=== PATIENT | female | born 1990 | race Caucasian/White ===

== ENCOUNTER 2019-06-15 13:02 | Inpatient (IN) | payer OTHER ==
[~2019-06-15] VITALS: Ht 157.5 cm; Wt 97.3 kg
[~2019-06-15 13:02] MED LIST: ACET325T33 PO; IBUP800T48 PO
[2019-06-15] MEDS ORDERED: LACTATED RINGER'S 1,000 ML IV SCH ×2 (14:07→19:59)
[2019-06-15 14:30] VITALS: Ht 157.5 cm; Wt 97.3 kg
[2019-06-15] MEDS ORDERED: OXYTOCIN 30 UNITS/LR 500 ML IV PRN ×2 (14:30→20:00)
[2019-06-15] MEDS ORDERED: MISOPROSTOL 200 MCG TAB PR PRN ×2 (14:30→20:00)
[2019-06-15] MEDS ORDERED: CARBOPROST 250 MCG INJ IM PRN ×2 (14:30→20:00)
[2019-06-15] MEDS ORDERED: METHYLERGONOVINE 0.2 MG INJ IM PRN ×2 (14:30→20:00)
[2019-06-15] MEDS ORDERED: OXYTOCIN 30 UNITS/LR 500 ML IV SCH (14:30)
[2019-06-15] MEDS ORDERED: CEFAZOLIN 2 GM/50 ML (PMX) 50 ML IVPB SCH (14:30)
--- NOTE | 2019-06-15 14:55 | PREAC ---
Date/Time of Note Date/Time of Note DATE: 06/15/19 TIME: 14:54 Anesthesia Eval and Record Evaluation Time Pre-Procedure Interview DATE: 06/15/19 TIME: 14:54 Age 28 Sex female NPO: 8 hrs Preoperative diagnosis IUP AT 39 WEEKS Planned procedure REPEAT C SECTION Past Medical History Past Medical History: Includes GI: Obesity Surgery & Anesthesia Issues No known issue Meds Anticoagulation: No Beta Kendy within 24 hr: No Reason Beta Kendy not given: Pt. not on B-Kendy Current Medications Lactated Ringer's 1,000 ml @ 125 mls/hr Q8H IV ; Start 06/15/19 at 14:07 Cefazolin Sodium/ Dextrose 50 ml @ 100 mls/hr ONCE IVPB ; Start 06/15/19 at 14:30 Oxytocin/Lactated Ringer's 500 ml @ 125 mls/hr POST IV ; Start 06/15/19 at 14:30 Oxytocin/Lactated Ringer's 500 ml @ 0 mls/hr ONCE PRN IV .VAGINAL BLEEDING; Start 06/15/19 at 14:30 Methylergonovine Maleate (Methergine) 0.2 mg ONCE PRN IM .VAGINAL BLEEDING; Start 06/15/19 at 14:30 Carboprost Tromethamine (Hemabate) 250 mcg ONCE PRN IM .VAGINAL BLEEDING; Start 06/15/19 at 14:30 Misoprostol (Cytotec) 1,000 mcg ONCE PRN VT .VAGINAL BLEEDING; Start 06/15/19 at 14:30 Meds reviewed: Yes Allergies Coded Allergies: No Known Allergies (Verified Allergy, Unknown, 06/15/19) Allergies Reviewed: Yes Labs/Studies Labs Reviewed: Reviewed by anesthesiologist test: Positive Pre-procedure Exam Airway: Adequate mouth opening, Adequate thyromental dist Mallampati: Mallampati II Teeth: Normal Lung: Normal Heart: Normal ASA Physical Status ASA physical status: 2 Emergency: None Planned Anesthetic Neuraxial: Spinal Planned Pain Management Sub-arachniod narcotics Pre-operative Attestations Prior to commencing anesthesia and surgery, the patient was re-evaluated, there was verification of: *The patient's identity *The results of appropriate recent lab work and preoperative vital signs *The above evaluation not changing prior to induction *Anesthetic plan, risk benefits, alternative and complications discussed with patient/family; questions answered; patient/family understands, accepts and wishes to proceed. TREVA DELACRUZ Jun 15, 2019 14:55
[2019-06-15] MEDS ORDERED: DEXAMETHASONE 4 MG/ML 1 ML INJ ONE (15:47)
[2019-06-15] MEDS ORDERED: EPHEDrine 25 MG/5 ML SYG ONE (15:47)
[2019-06-15] MEDS ORDERED: ONDANSETRON 4 MG INJ ONE (15:47)
[2019-06-15] MEDS ORDERED: EPINEPHrine 0.1 MG/ML SYG ONE (15:49)
[2019-06-15] MEDS ORDERED: morphine SULFATE/PF (10 MG/10 ML) INJ ONE (16:32)
[2019-06-15] MEDS ORDERED: OXYTOCIN 30 UNITS/LR 500 ML IV ONE (16:33)
--- NOTE | 2019-06-15 16:54 | HP ---
Date/Time of Note Date/Time of Note DATE: 06/15/19 TIME: 16:50 OB - History Hx of Present Free Text/Dictation 28-year-old female 3 para 2 with previous x1 at 39+ weeks admitted for repeat section and a sterilization procedure Last Menstrual Period: Sep 15, 2018 Estimated Due Date: Jun 22, 2019 : 3 Para: 2 Care: Good Care Ultrasounds: Normal mid trimester US Obstetrical Complications: None Medical Complications: None, Other (Previous ) Past Family/Social History * Past Medical, Surgical, Family and Obstetric Histories reviewed from chart. Blood Type: O+ Rubella: immune RPR/VDRL: Negative GBS Status: Negative HBsAG: Negative OB Admission Exam Physical Exam HEENT: WNL Heart: Rhythm Normal Lungs: Clear, Equal Abdomen: WNL Extremities: Normal Reflexes: Normal Cervical Dilatation: None Effacement: 0% Station: -3 Membranes: Intact Heart Rate: 140's Accelerations: Accelerations Present Decelerations: No Decelerations Varibility: Marked Contractions on Admission: None Last 72 hours Lab Results CBC & BMP 06/15/19 14:30 OB Assessment/Plan Reason for admission: section Other Assessment: Term gestation Previous Desires sterilization Other plan: Repeat and tubal ligation ENRIQUE GORE MD Jun 15, 2019 16:54
[2019-06-15] MEDS ORDERED: KETOROLAC 30 MG INJ IV STA (16:56)
[2019-06-15] MEDS ORDERED: ACETAMINOPHEN 500 MG TAB PO STA (16:56)
--- NOTE | 2019-06-15 16:56 | OPR ---
Operative Report Planned Procedure Procedure date Jun 15, 2019 Procedure(s) Repeat and bilateral tubal ligation Performed by see signature line Filter Tank Operator: MINE SIMS M.D. Anesthesiologist: TREVA DELACRUZ Pre-procedure diagnosis Term gestation Previous Desired sterilization [id number] Anesthesia Type: [id number] spinal Post-Procedure Post-procedure diagnosis Status post repeat and tubal ligation Findings Live Baby in BRIANA position Clear amniotic fluid Normal-appearing right and left fallopian tubes and ovaries Estimated Blood Loss: 500 - 600 mls Specimen(s) Segments of right and left fallopian tubes Grafts/Implant(s) none Complication(s) none Pt Condition post procedure: stable Disposition: PACU Procedure Description Under satisfactory anaesthesia a Pfannenstiel incision was made two fingerbreadth above and parallel to the symphysis of pubis around the previous scar and previous scar was removed Incision was extended laterally to the border of the Recti muscles on either sides. Incision was carried down with sharp and blunt dissection until fascia was reached. Anterior Recti muscle fascia was incised in mid portion and incision extended laterally to the border of skin incision. Fascia was mobilized from muscle superiorly and Recti muscles were from midline using sharp and blunt dissection. Peritoneum was visualized; Avoiding bowel and bladder it was incised . Incision was extended superiorly and inferiorly. Bladder blade was placed. Posterior peritoneum covering the lower segment of the uterus and lower segment of the uterus were incised.Low transverse uterine incision was made on lower segment of the uterus. Incision extended laterally to the border of Round Lig. on either sides and baby was delivered from OT. position . Amniotic fluid appeared clear. Cord blood was obtained and cord had 3 vessels . Placenta was delivered spontaneously and appeared intact and complete. Intrauterine cavity was rubbed with a laparotomy sponge. Uterine incision was closed in 2 layers using running stitches of No1 Monocryl. Hemostasis appeared secure. Ovaries and Fallopian tubes were within normal limits. Bilateral Tubal Ligation was performed by following procedure: R fallopian tube was raised in mid portion; a Germania clamp was placed below the fimbriae extending to proximal portion of the fallopian tube. Another clamp was placed parallel to the first and after incising the fallopian tube the stump was sutured using 0 Vicryl stitch. Hemostasis was secure . Same procedure was done on fallopian tube on the opposite side. Hemostasis appeared to be secure on ligated sites of either fallopian tubes. Announcing needle, lap sponge and instrument count to be correct abdomen was closed in layers as follows: Peritoneum and Recti muscles with running stitches of 2-0 Vicryl. Fascia with running stitch of No 1 PDS. Subcutaneous tissue with running stitches of 2-0 Monocryl and skin was closed using ancelmo. Patient tolerated the procedure well and was transferred to [facility] in good condition. ENRIQUE GORE MD Jun 15, 2019 16:56
[2019-06-15] MEDS ORDERED: AZITHROMYCIN 500MG/NS (PMX) 250 ML IVPB ONE (17:00)
[2019-06-15] MEDS ORDERED: ONDANSETRON 4 MG INJ IV PRN (17:00)
[2019-06-15] MEDS ORDERED: NALOXONE (0.4 MG/ML) INJ IV PRN (17:00)
[2019-06-15] MEDS ORDERED: HYDROmorphONE 0.5 MG/0.5 ML SYG IV PRN ×2 (17:00)
[2019-06-15] MEDS ORDERED: ZOLPIDEM 5 MG TAB PO PRN (17:00)
[2019-06-15] MEDS ORDERED: DIPHENHYDRAMINE 50 MG INJ IV PRN (17:00)
[2019-06-15 19:10] VITALS: BP 111/63; PULSE 83; RESP 19
[2019-06-15] MEDS ORDERED: HYDROCODONE/APAP (5/325) TAB PO PRN (20:00)
[2019-06-15] MEDS ORDERED: OXYCODONE/ACETAMINOPHEN (5/325) TAB PO PRN (20:00)
[2019-06-15] MEDS ORDERED: LANOLIN HPA 1 PKT TOP PRN (20:00)
[2019-06-15] MEDS ORDERED: NA PHOSPHATE/BIPHOS 133 ML ENEMA PR PRN (20:00)
[2019-06-15 20:10] VITALS: BP 106/61; PULSE 96; RESP 18
[2019-06-15] MEDS: CEFAZOLIN 2 GM/50 ML (PMX) 50 ML IVPB SCH (21:13)
[2019-06-15] MEDS: SENNA/DOCUSATE NA (8.6MG/50MG) TAB PO SCH (21:16)
[2019-06-15] MEDS: IBUPROFEN 800 MG TAB PO SCH (22:00)
[2019-06-16] VITALS: BP 112/68; PULSE 78; RESP 17
[2019-06-16] MEDS: CLINDAMYCIN 300 MG CAP PO SCH ×5 (00:45→23:42)
[2019-06-16] MEDS: LACTATED RINGER'S 1,000 ML IV SCH ×3 (02:48→18:45)
[2019-06-16 04:05] VITALS: BP 98/52; PULSE 67; RESP 19
[2019-06-16] MEDS: CEFAZOLIN 2 GM/50 ML (PMX) 50 ML IVPB SCH ×2 (04:16→11:42)
[2019-06-16] MEDS: KETOROLAC 30 MG INJ IV PRN ×2 (04:16→12:36)
[2019-06-16] MEDS: IBUPROFEN 800 MG TAB PO SCH ×3 (06:00→22:11)
[2019-06-16 08:30] VITALS: BP 99/58; PULSE 73; RESP 18
[2019-06-16] MEDS: SENNA/DOCUSATE NA (8.6MG/50MG) TAB PO SCH ×2 (09:00→22:10)
[2019-06-16] MEDS ORDERED: BISACODYL 10 MG SUPP PR ONE (10:00)
--- NOTE | 2019-06-16 10:18 | PAC ---
Date/Time of Note Date/Time of Note DATE: 06/16/19 TIME: 10:18 Post-Anesthesia Notes Post-Anesthesia Note Last documented vital signs Vital Signs Date Temp Pulse Resp B/P (MAP) Pulse Ox O2 O2 Flow FiO2 Time Delivery Rate 06/16/19 97.8 73 18 99/58 (72) 95 Room Air 08:30 Activity: WNL Respiratory function: WNL Cardiovascular function: WNL Mental status: Baseline Pain reasonably controlled: Yes Hydration appropriate: Yes Nausea/Vomiting absent: Yes TERVA DELACRUZ Jun 16, 2019 10:18
--- NOTE | 2019-06-16 10:19 | OPPN ---
Date/Time of Note Date/Time of Note DATE: 06/16/19 TIME: 10:18 Anesthesia Follow up Anesthesia Follow up Last documented vital signs Vital Signs Date Temp Pulse Resp B/P (MAP) Pulse Ox O2 O2 Flow FiO2 Time Delivery Rate 06/16/19 97.8 73 18 99/58 (72) 95 Room Air 08:30 Respiratory function: WNL Cardiovascular function: WNL Comments satisfactory pain management with duramorph TREVA DELACRUZ Jun 16, 2019 10:19
[2019-06-16 12:00] VITALS: BP 101/59; PULSE 75; RESP 18
[2019-06-16 15:39] VITALS: BP 102/58; PULSE 76; RESP 18
[2019-06-16 19:50] VITALS: BP 111/63; PULSE 87; RESP 18
--- NOTE | 2019-06-16 20:06 | PN ---
Date/Time of Note Date/Time of Note DATE: 06/16/19 TIME: 20:05 Assessment/Plan VTE Prophylaxis VTE Prophylaxis Intervention: ambulation Lines/Catheters IV Catheter Type (from Nrsg): Peripheral IV Assessment/Plan Assessment/Plan Status post postop day #1 Continue to ambulate and advance diet Subjective 24 Hr Interval Summary Passing flatus Constitutional: no complaints, improved, ambulates, BM, flatus, urine output Pain Control: well controlled Exam/Review of Systems Vital Signs Vitals Vital Signs Date Temp Pulse Resp B/P (MAP) Pulse Ox O2 O2 Flow FiO2 Time Delivery Rate 06/16/19 98.2 76 18 102/58 96 Room Air 15:39 (73) Intake and Output 06/15/19 06/15/19 06/16/19 1515:00 23:00 07:00 IntakeIntake Total 200 ml 400 ml OutputOutput Total 250 ml 900 ml BalanceBalance -50 ml -500 ml Exam Free Text/Dictation Abdomen is soft with present bowel sounds Dominant does not seem distended Incision is covered Constitutional: alert, oriented, well developed Psych: no complaints, nl mood/affect Head: normocephalic, atraumatic Eyes: nl conjunctiva, EOMI, nl lids, nl sclera ENMT: nl external ears & nose, nl lips & teeth, nl nasal mucosa & septum, mucosa pink and moist Neck: supple, non-tender Respiratory: clear to auscultation, normal air movement Cardiovascular: regular rate and rhythm, nl pulses Gastrointestinal: soft, nl liver, spleen, non-tender Musculoskeletal: nl extremities to inspection, nl gait and stance Extremities: normal pulses Neurological: THREAD INSPECTOR II-XII intact, nl mental status, nl speech, nl strength Skin: nl turgor, rash or lesions Lymph: nl lymph nodes Results Result Diagram: 06/16/19 0658 ENRIQUE GORE MD Jun 16, 2019 20:06
[2019-06-17 03:40] VITALS: BP 103/59; PULSE 85; RESP 18
[2019-06-17] MEDS: IBUPROFEN 800 MG TAB PO SCH ×3 (05:37→21:31)
[2019-06-17] MEDS: CLINDAMYCIN 300 MG CAP PO SCH ×3 (05:37→18:11)
[2019-06-17 07:35] VITALS: BP 108/77; PULSE 80; RESP 18
[2019-06-17] MEDS: SENNA/DOCUSATE NA (8.6MG/50MG) TAB PO SCH ×2 (09:14→21:00)
--- NOTE | 2019-06-17 12:46 | DS ---
Date/Time of Note Date/Time of Note Home today or next day DATE: 06/17/19 TIME: 12:42 Obstetrical Discharge Record Final Diagnosis Final Diagnosis: Term delivered Other Final Diagnosis Status post repeat section and bilateral tubal ligation Vaginal Delivery Obstetrical Delivery: Bilateral Tubal Ligation Section Section: Repeat Condition on Discharge Physical Assessment Last Vitals: See nurse's notes Voiding: Yes Bowel Movement: Yes Breast: Soft, non-tender, Filling Fundus: Firm Abdomen and Incision: Abdomen is soft with firm fundus Bowel sounds are present and abdomen is not distended Incision is healing well without induration and no erythema Calf Tenderness: No Patient Condition: Good ENRIQUE GORE MD Jun 17, 2019 12:46
--- NOTE | 2019-06-17 12:52 | DS ---
Date/Time of Note Date/Time of Note DATE: 06/17/19 TIME: 12:46 Discharge Summary Admission/Discharge Info Admit Date/Time Jun 15, 2019 at 13:02 Discharge Date/Time June 17June 182018 Discharge Diagnosis Status post repeat and tubal ligation Patient Condition: Good Procedures Repeat section and bilateral tubal ligation Hx of Present Illness 28-year-old female underwent scheduled repeat section and tubal ligation at term Hospital Course She had uncomplicated hospitalization course Discharge home on second or third day with good prognosis and condition Follow-up Plan Was told to refer to clinic in few days for staple removal Primary Care Provider Allen Bhat MD Time spent on discharge: > 30 minutes Pending Labs Laboratory Tests Test 06/17/19 06:52 White Blood Count 14.3 10^3/ul (4.8-10.8) Red Blood Count 3.58 10^6/ul (4.20-5.40) Hemoglobin 10.0 g/dl (12.0-16.0) Hematocrit 30.1 % (37.0-47.0) Mean Corpuscular Volume 84.1 fl (82.0-101.0) Mean Corpuscular Hemoglobin 27.9 pg (29.0-33.0) Mean Corpuscular Hemoglobin Concent 33.2 g/dl (32.0-37.0) Red Cell Distribution Width 13.2 % (11.5-14.5) Platelet Count 319 10^3/UL (140-415) Mean Platelet Volume 8.2 fl (7.4-10.4) Immature Granulocytes % 1.000 % (0.001-0.429) Neutrophils % 74.0 % (39.0-77.0) Lymphocytes % 16.2 % (15.0-51.0) Monocytes % 7.2 % (0.0-11.0) Eosinophils % 1.2 % (0.0-7.0) Basophils % 0.4 % (0.0-2.0) Nucleated Red Blood Cells % 0.0 /100WBC (0.0-0.0) Immature Granulocytes # 0.140 10^3/ul (0.0-0.031) Neutrophils # 10.6 10^3/ul (1.6-7.5) Lymphocytes # 2.3 10^3/ul (0.8-2.9) Monocytes # 1.0 10^3/ul (0.3-0.9) Eosinophils # 0.2 10^3/ul (0.0-0.5) Basophils # 0.1 10^3/ul (0.0-0.1) Nucleated Red Blood Cells # 0.0 10^3/ul (0.0-0.0) ENRIQUE GORE MD Jun 17, 2019 12:52
--- NOTE | 2019-06-17 13:11 | PD.PPDC ---
BUSINESS DEVELOPMENT CONSULTANT Discharge Instruction Provider Information Physician Information 28-year-old female underwent repeat section and tubal ligation Diagnosis [id number] Final Diagnosis: Akdzs0m Status post repeat and tubal ligation Condition [id number] Patient Condition: [id number] Good Diet [id number] Diet: Komzj8y Resume Regular Diet Activity/Restrictions [id number] Restrictions: Hefoh0m No Exercising No Lifting Nothing in the Vagina [id number] Return to Work or School: [id number] Aug 23, 2019 Wound/Drain Care Instructions [id number] Wound/Drain Care Instructions: Qmixz1t Keep clean and dry Follow-up Follow-up with Physician: 3, 4, Day/Days (In clinic for staple removal) Return to clinic for [id number] OB Instructions: Avxlm5a Breast Tenderness Depression Comment: Pelvic rest and no hard activity for 2 months [id number] Surgical Instructions: Noivp0r Incisional Drainage Incisional Redness ENRIQUE GORE MD Jun 17, 2019 13:11
[2019-06-17] MEDS ORDERED: ACETAMINOPHEN 325 MG TAB PO PRN (13:30)
[2019-06-17 15:45] VITALS: BP 108/67; PULSE 82; RESP 18
[2019-06-17 19:40] VITALS: BP 124/70; PULSE 85; RESP 18
[2019-06-18] MEDS: CLINDAMYCIN 300 MG CAP PO SCH ×3 (00:33→12:00)
[2019-06-18 03:30] VITALS: BP 109/68; PULSE 81; RESP 18
[2019-06-18] MEDS: IBUPROFEN 800 MG TAB PO SCH (05:39)
[2019-06-18 08:00] VITALS: BP 117/81; PULSE 83; RESP 18
[2019-06-18] MEDS: SENNA/DOCUSATE NA (8.6MG/50MG) TAB PO SCH (09:00)
[2019-06-18] MEDS ORDERED: MEASLES,MUMPS,RUBELLA VACCINE INJ SC* ONE (09:00)
[2019-06-18] MEDS ORDERED: DIPHTH/TET/ACEL PERTUSS (ADULT) 0.5 ML VIAL IM* ONE (09:00)
== END 2019-06-18 13:59 | disposition home or self-care (01) | DRG 785 ==
LOC: L-D 13:02 → PP1 19:05
PROVIDERS: ADMIT Obstetrics & Gynecology; ATTEND Obstetrics & Gynecology
PROC: 0UB70ZZ Excision of Bilateral Fallopian Tubes, Open Approach (ICD-10-PCS; 2019-06-15)
PROC: 10D00Z1 Extraction of Products of Conception, Low, Open Approach (ICD-10-PCS; principal; 2019-06-15 15:30)
DX: O34.211 Maternal care for low transverse scar from previous cesarean delivery (principal); O99.214 Obesity complicating childbirth; E66.9 Obesity, unspecified; Z3A.39 39 weeks gestation of pregnancy; Z37.0 Single live birth; Z30.2 Encounter for sterilization
CPT/HCPCS: 85025; 85610; 85730; 86592; 86850; 86900; 86901; 87340; 88302; 99464; J0171; J0456; J0690; J1100; J1885; J2274; J2405; J2590; J7120